=== PATIENT | female | born 1965 | race Caucasian/White ===

== ENCOUNTER 2017-01-28 21:04 | Emergency (ER) | payer OTHER ==
[~2017-01-28] VITALS: Ht 162.6 cm; Wt 85.5 kg
[2017-01-28 21:07] VITALS: Ht 162.6 cm; Wt 85.5 kg
[2017-01-28] MEDS ORDERED: IPRATROPIUM (NEB) 0.5 MG/2.5 ML AMP NEB STA (21:26)
[2017-01-28] MEDS ORDERED: ALBUTEROL 0.083% (NEB) 2.5 MG/3 ML AMP NEB STA (21:26)
[2017-01-28] MEDS ORDERED: predniSONE 20 MG TAB PO STA (21:26)
--- NOTE | 2017-01-28 22:55 | RADRPT ---
PROCEDURE: XR Chest. CLINICAL INDICATION: Cough. Concern for pneumonia TECHNIQUE: PA and lateral views of the chest were obtained. COMPARISON: None available FINDINGS: The trachea central bronchi are patent. The cardiomediastinal silhouette is within normal limits. The lungs are clear. No pleural effusion or pneumothorax is identified. The visualized osseous str uctures are intact. RPTAT:HJJR IMPRESSION: Unremarkable two-view chest x-ray. Physician Jose Alberto Date Time Electronically viewed and signed by Mikal Draper Physician on 01/28/2017 22:54 /
[2017-01-28] MEDS ORDERED: INHA1SPA53 MC (23:09)
[2017-01-28] MEDS ORDERED: ALBU18HF INHALATION (23:09)
--- NOTE | 2017-01-28 23:09 | ERD ---
ER Documentation Chief Complaint Date/Time DATE: 01/28/17 TIME: 22:58 Chief Complaint cough x 2 months HPI This 52-year-old female presents to emergency department with cough, shortness of breath, and intermittent fever for 1 week. Patient reports that she has been having intermittent cough and shortness of breath for the last 2 months. Patient has seen her primary care physician, report saw him 4 days ago and was started on an unknown antibiotic. Patient brings antibiotics she with an illegible scribble, for nurse practitioner to review. Patient did not bring any of her medication bottles. States that she is on one antibiotic she takes once a day. Motrin and 2 other unknown medications. Patient asked if she was on a medication called prednisone. Patient denies being on prednisone. Patient denies using albuterol inhalers or having history of asthma. Patient reports productive cough for green sputum. Intermittent dizziness, shortness of breath, denies chest pain, or palpitations. ROS All systems reviewed and are negative except as per history of present illness. Medications Home Meds Active Scripts Prednisone* (Prednisone*) 20 Mg Tab, 40 MG PO DAILY for 4 Days, TAB Prov:KEMAL,MADELEINE 01/28/17 Inhaler, Assist Devices (E-Z SPACER) 1 Each Spacer, 1 EACH MC, #1 Prov:KEMAL,MADELEINE 01/28/17 Albuterol Sulfate* (Ventolin HFA*) 18 Gm Hfa.aer.ad, 2 PUFF INHALATION Q4H, #1 INHALER Prov:KEMAL,MADELEINE 01/28/17 Allergies Allergies: Coded Allergies: No Known Allergy (Unverified , 01/28/17) PMhx/Soc Medical and Surgical Hx: pt denies Medical Hx, pt denies Surgical Hx Hx Alcohol Use: No Hx Substance Use: No Hx Tobacco Use: No Smoking Status: Never smoker Physical Exam Vitals Vital Signs Date Time Temp Pulse Resp B/P Pulse Ox O2 Delivery O2 Flow Rate FiO2 01/28/17 23:16 97.4 89 20 109/60 96 Room Air 01/28/17 21:45 79 24 96 21 01/28/17 21:07 97.8 95 20 124/76 98 Vitals stable, triage notes reviewed Physical Exam Const: No acute distress Head: Atraumatic Eyes: Normal Conjunctiva, PERRLA, EOMI ENT: Normal External Ears, Nose and Mouth. Neck: Full range of motion. No JVD Resp: Chest rise and fall symmetrically, wheezing with forced expiration, diminished bases. No rales or rhonchi Cardio: Regular rate and rhythm, no murmurs Abd: Skin: Back: Ext: Neur: Awake and alert Psych: Normal Mood and Affect Results 24 hrs Current Medications Medications (Trade) Dose Ordered Sig/Augustina Route PRN Reason Start Time Stop Time Status Last Admin Dose Admin Albuterol (Proventil 0.083% (Neb)) 5 mg ONCE STAT NEB 01/28/17 21:26 01/28/17 21:31 DC 01/28/17 21:43 Ipratropium [place] (Atrovent 0.02% (Neb)) 0.5 mg ONCE STAT NEB 01/28/17 21:26 01/28/17 21:31 DC 01/28/17 21:43 Prednisone (Prednisone) 60 mg ONCE STAT PO 01/28/17 21:26 01/28/17 21:31 DC 01/28/17 21:48 Procedures/MDM PROCEDURE: XR Chest. CLINICAL INDICATION: Cough. Concern for pneumonia TECHNIQUE: PA and lateral views of the chest were obtained. COMPARISON: None available FINDINGS: The trachea central bronchi are patent. The cardiomediastinal silhouette is within normal limits. The lungs are clear. No pleural effusion or pneumothorax is identified. The visualized osseous structures are intact. RPTAT:HJJR IMPRESSION: Unremarkable two-view chest x-ray. Physician Jose Alberto Date Time Electronically viewed and signed by Physician Jose Alberto on 01/28/2017 22:54 This 52-year-old female presents with respiratory symptoms without improvement on current antibiotic. Patient has been seen by primary physician was started on 3 Medications unknown to patient. Patient states she is on antibiotics she takes once a day. Patient denies using inhalers, or prednisone. Patient received 60 mg of prednisone, albuterol and Atrovent hand-held nebulized treatment. Suspected bronchitis treatment with Levaquin or azithromycin. Chest x-ray to rule out pneumonia. PA and lateral views of chest, trachea central bronchi are patent, the cardiomediastinal silhouette is within normal, the lungs are clear, no pleural effusion or pneumothorax is identified, visualized osseous structures are intact. Unremarkable chest x-ray. I feel patient can be managed in the outpatient setting by primary care physician will add albuterol MDI 2 puffs every 4 hours as needed cough. Prednisone 404 days. Patient will be given strict instructions to look at medications make sure that she is not already on prednisone. If she is taking prednisone discontinue previous one and continue today's current emergency room treatment. Take all other medications as prescribed. I feel the patient is stable for discharge at this time. I have discussed results, examination findings, the treatment plan with the patient and family present prior to discharge. Indications for emergent reevaluation, side effects of medication were also discussed. All questions were answered. Patient verbalizes understanding and agrees with plan of care. Departure Diagnosis: Primary Impression: Bronchitis, acute Bronchitis organism: unspecified organism Qualified Code: J20.9 - Acute bronchitis, unspecified organism Condition: Good Patient Instructions: Bronchitis With Wheezing (Adult) [facility] Additional Instructions: Thank you for for coming to [facility] for your care today. Please ask your nurse or provider if you have questions about your care today and do not leave until all your questions have been answered. Please use any medications given as directed and follow-up with your doctor (or the doctor you were referred to) in the next 2-3 days. If you do not have a primary care doctor you may follow up at the [facility] (listed below). You may also use motrin and tylenol as needed for fever and/or pain unless instructed otherwise by your provider or nurse. Indications for more urgent follow-up have been discussed, but you may return to the Emergency Department at ANY time for any worrisome or worsening symptoms. If you have abdominal pain, please know that no test or exam you received is perfect and you should follow up within 8 hours for continued pain. If you had any imaging studies today, such as an X-Ray or CT Scan, these studies will be reviewed later by a radiologist. You will be called if there are important findings that were not identified today, so make sure the contact information you provided at registration is correct. If you received any narcotic pain control medicine today, such as Vicodin, Morphine or Dilaudid, your coordination and judgment may be affected for a number of hours. Please do not drive or operate heavy machinery, and you may want someone to assist you at home. If you were given a prescription for narcotic medication, be aware that it is very addictive- use sparingly and only if necessary. MADELEINE SOMMER Jan 28, 2017 23:08
[2017-01-28] MEDS ORDERED: PRED20TA PO (23:10)
[2017-01-28 23:16] VITALS: BP 109/60; PULSE 89; RESP 20; TEMP 97.4
== END 2017-01-28 23:16 | disposition home or self-care (01) ==
LOC: FTE 21:04
DX: J20.9 Acute bronchitis, unspecified (principal)
CPT/HCPCS: 71020; 94664; J7512; Z7502; Z7610